=== PATIENT | female | born 1975 | race Two or more races ===

== ENCOUNTER 2024-06-15 09:57 | Outpatient (AMB) | payer BC, SELFPAY ==
[2024-06-15 10:27] VITALS: BP 128/85; PULSE 78; RESP 16; TEMP 36.2; O2SAT 95; BMI 35.6
--- NOTE | 2024-06-15 10:27 | GYNCLNT_ITS ---
Vital Signs 06/15/24 10:27 Height 1.63 m Height Method Stated Weight 94.064 kg Weight Measurement Method Standing Scale BMI 35.6 BP 128/85 H Blood Pressure Source Automatic Cuff Blood Pressure Location Left Upper Arm Position Sitting Respiration 16 Pulse 78 Pulse Source Monitor Temp 97.2 F Temp Source Oral Pulse Oximetry (%) 95 Oxygen Delivery Method Room Air Allergies/Home Meds Allergies & Medications Allergies No Known Allergies Allergy (Verified 06/15/24 10:29) Medication Reconciliation nebivolol 10 mg tablet 10 mg PO QDAY 06/15/24 [History Confirmed 06/15/24] Intake Visit Data Collection New Patient or Established: Established Patient (seen at [facility] within 3 years) Reason for Visit:: HEAVY MENSES Seen by Clinical Staff ONLY (RN/MA): No 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 Required: No Do You Feel Safe at Home: Yes Authorities Contacted: N/A PCP or OBGYN visit in last 3 months: No Hx Now: No Are you currently on any form of Control: Yes Last menstrual period: 05/12/24 Pain Present Currently: No Pain Scale Used: Leonard-Kate/Numerical Pain scale:: 0 Smoking Status Smoking Status: Never smoker 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 1. Little interest or pleasure in doing things: not at all 2. Feeling down, depressed, or hopeless: not at all Total score: 0 PHQ-9 3. Trouble falling or staying asleep, or sleeping too much: Not at all 4. Feeling tired or having little energy: Not at all 5. Poor appetite or overeating: Not at all 6. Feeling bad about yourself - or that you are a failure or have let yourself or your family down: Not at all 7. Trouble concentrating on things, such as reading the newspaper or watching television: Not at all 8. Moving or speaking so slowly that other people could have noticed? - Or the opposite - being so fidgety or restless that you have been moving around a lot more than usual: not at all 9. Thoughts that you would be better off or of hurting yourself in some way: Not at all Total score: 0 Source: Developed by Drs. Ramón Brennan, Ayanna Cesar, Jason Finnegan and colleagues, with an educational landon from [employer]. Depression screen completed yes Social History Living Situation History Marital Status: Lives With: Family Housing: House Tobacco History Smoking Status: Never smoker Second Hand Smoke Exposure: No Alcohol History Alcohol Intake: Current Alcohol Intake Frequency Other:: SOCIALLY Substance Use History Substance Use: NONE Domestic Abuse History Do You Feel Safe at Home: Yes Past Medical History Past Medical History Have you ever been diagnosed with any of the following: Neurological Problems Migraine: No Cardiology Problems Cardiac Arrhythmia: No Heart Murmur: No Hypercholesterolemia: Yes Rheumatic Fever: No Hypertension: Yes (On a beta-brandon) Respiratory Problems Asthma: No Tuberculosis: No Pulmonary Embolism: No Sleep Apnea: No Stomache/Intestinal Problems Celiac Disease: No Gall Bladder Disease: No Irritable Bowel: Yes Gastroesophageal Reflux Disease: No Obesity: No Genital/Urinary Problems Kidney Stones: No Reproductive Problems Breast Cancer: No Endometriosis: No Fibroids: No Genital Herpes: No Gonorrhea: No Pelvic Inflammatory Disease: No Polycystic Ovarian Syndrome: No Previous Pregnancies: Yes ( x 4) Syphilis: No Musculoskeletal Problems Myasthenia Gravis: No Arthritis: Yes Fibromyalgia: No Head,Eye,Nose,Throat Problems Cataracts: No Glaucoma: No Endocrine Problems Diabetes Mellitus Type 2: No Hyperthyroidism: Yes (Possible Regina's) Hypothyroidism: Yes (MORE THAN 8 YEARS AGO) Thyroid Cancer: No Blood Problems Anemia: No Psychologic Problems Depression: Yes Anxiety: Yes Other Problems Hospitalization: Yes (For vaginal delivery x 4) Cosmetic Surgery: No Blood Transfusions: No VRSA: No Surgical History Appendectomy: No Bariatric Surgery: No Breast Surgery: No Additional Surgical History: Endometrial biopsy History of Present Illness HPI Narrative The patient is a very pleasant 48-year-old -1-0-4 past obstetrical history significant for vaginal delivery x 4 her babies were born in 1995, 2000, 2002, and 2007. Her second child was born at 36 weeks. Patient presents to discuss her heavy cycles. She started a workup with Dr. Duffy I do not have any records available. She states about a year ago she had an ultrasound and an endometrial biopsy performed with Dr. Duffy. She states her spouse had a vasectomy. Her cycles used to be 3 days and now they are 7 days with clots. Patient is interested in a NovaSure endometrial ablation. She has heard from some of her friends that had an ablation that they are very happy with their results and she would like to pursue this. She is on blood pressure medication and cannot take control pills. She declines a Mirena IUD for her cycles. She has a history of some type of thyroid imbalance and is unsure whether it is Regina's. She states she has not had her thyroid checked in a while. Besides her heavy cycles she has no gynecological complaints. She states she has had a Pap smear within the last year. Review of Systems Constitutional Constitutional: Reports system reviewed and no additional complaints, except as documented Comments: Patient reports heavy cycles and cramps with her heavy cycles no fevers chills abnormal discharge. No new partners. No pelvic organ prolapse. No urinary complaints. No severe pelvic pain. Exam Narrative Physical exam: Pelvic and cervical exam deferred General General Appearance: alert, in no apparent distress, comfortable, cooperative, healthy appearing and well groomed ENT ENT exam: Present normal exam, normal oropharynx and mucous membranes moist Neck Neck exam: Present normal inspection, full ROM and trachea midline Chest Chest inspection: Present normal inspection and symmetric chest wall rise Resp Respiratory exam: Present normal lung sounds bilaterally Card Cardiovascular exam: Present regular rate, normal rhythm and normal heart sounds Abdominal Abdominal exam: Present soft and normal bowel sounds Psych Psychiatric exam: Present normal affect and normal mood Skin Skin exam: Present warm, dry, intact and normal color Assessment & Plan Diagnosis / Problem List (1) Menorrhagia, premenopausal: Status: Acute Assessment and Plan: Different options were discussed including watchful waiting Mirena IUD or surgical management in the form of a NovaSure endometrial ablation. Patient's s pouse has had a vasectomy for contraception. Patient opts for NovaSure endometrial ablation. This point we will check a thyroid and ultrasound and a CBC. Will authorize her insurance for NovaSure endometrial ablation she will come in for a preop visit once this is authorized. Additional Plan Follow Up: 4 Weeks Office Procedures OB Clinic LOC & Office Proc's Nursing/Assessment Patient Status: Established Patient OB Clinic Nursing Assessment: Medication Reconciliation, Update PMH in EMR and Vital Signs OB Clinic Coordination of Care: Complex Care and Chronic Disease 1-5, Consent, records obtained, informed consent, Education Simp Pt/Fam, Lab and Imaging orders and Staff clarify orders Established Patient Charge Established Patient Point Assignment: 100 Established Patient Point Charge: EP Level 3 (80-115)
== END 2024-06-15 11:16 | disposition home or self-care (01) ==
LOC: HODSOBC 09:57
PROVIDERS: PCP Obstetrics & Gynecology; Referring Provider Obstetrics & Gynecology; Supervising Provider Obstetrics & Gynecology; Visit Provider Obstetrics & Gynecology
DX: N92.4 Excessive bleeding in the premenopausal period (principal)
CPT/HCPCS: 99213; G0463

== ENCOUNTER → 2024-06-15 | Outpatient (CLI) | payer BC, SELFPAY ==
[2024-06-15 12:16] LABS: Basophils # (Auto) 0.1 Thou/mm3 (0.0-0.2); Basophils % (Auto) 1 % (0-2.5); Eosinophils # (Auto) 0.3 Thou/mm3 (0.0-0.5); Eosinophils % (Auto) 3 % (0-10); Hematocrit 41.2 % (36.0-46.0); Hemoglobin 13.5 g/dL (12.0-16.0); Immature Granulocytes % (Auto) 0 % (0-0); Immature Granulocytes Auto 0.03 Thou/mm3 (0.00-0.00); Lymphocytes # (Auto) 2.6 Thou/mm3 (1.0-4.8); Lymphocytes % (Auto) 29 % (10-50); Mean Corpuscular HGB Conc 32.8 g/dl (31.0-37.0); Mean Corpuscular Hemoglobin 26.9 pg (25.0-35.0); Mean Corpuscular Volume 82 fL (80-100); Monocytes # (Auto) 0.7 Thou/mm3 (0.0-0.8); Monocytes % (Auto) 7 % (0-12); Neutrophils # (Auto) 5.4 Thou/mm3 (1.8-7.7); Neutrophils % (Auto) 60 % (37-80); Nucleated Red Blood Cell % 0 /100 WBC (0); Platelet Count 378 Thou/mm3 (140-440); RDW Standard Deviation 44.3 fL (36.4-46.3); Red Blood Count 5.01 Miln/mm3 (4.00-5.20)
[2024-06-15 12:27] LABS: Alanine Aminotransferase 17 U/L (10-49); Albumin, Serum 4.5 gm/dL (3.5-5.0); Albumin/Globulin Ratio 1.7 (1.2-2.2); Alkaline Phosphatase 77 U/L (46-116); Anion Gap 8 (7-16); Aspartate Amino Transferase 15 U/L (0-34); BUN/Creatinine Ratio 15 Ratio (12-20); Bilirubin,Total 0.4 mg/dL (0.3-1.2); Blood Urea Nitrogen 12 mg/dL (9-23); Calcium 9.7 mg/dL (8.3-10.6); Calcium (Corrected) 9.7 mg/dL (8.5-10.1); Carbon Dioxide 23.7 mMol/L (20.0-31.0); Chloride 108 mMol/L (98-107); Creatinine (Component) 0.8 mg/dL (0.6-1.3); Free T4 (Free Thyroxine) 1.12 ng/dL (0.89-1.76); Globulin 2.6 gm/dL (2.3-3.5); Glucose 101 mg/dL (74-106); Osmolality,Calculated 279 (275-295); Potassium 4.7 mMol/L (3.4-5.1); Sodium 140 mMol/L (136-145); Thyroid Stimulating Hormone 2.74 uIU/mL (0.55-4.78); Total Protein 7.1 gm/dL (5.7-8.2); eGFR > 60 See Note
[2024-06-18 07:19] LABS: Thyroid Peroxidase Antibodies* >900 IU/mL (<9)
== END | disposition home or self-care (01) ==
PROVIDERS: PCP Nurse Practitioner Family; Referring Provider Obstetrics & Gynecology; Visit Provider Obstetrics & Gynecology
DX: N92.0 Excessive and frequent menstruation with regular cycle (principal)
CPT/HCPCS: 36415; 80053; 84439; 84443; 85025; 86376

== ENCOUNTER → 2024-08-21 | Outpatient (CLI) | payer BC, SELFPAY ==
--- NOTE | 2024-08-21 08:30 | XR_ITS ---
Examination: Thyroid sonography complete TECHNIQUE: Grayscale sonographic images thyroid lobes Date and time: August 21, 2024 0833 hours Comparison June 01, 2022 INDICATIONS: Lower pole vascular right thyroid nodule 2.4 x 1.8 cm, 10 mm lower pole left thyroid nodule on thyroid sonogram June 01, 2022 FINDINGS: Right thyroid 6.1 cm Lower pole nodule 14 x 12 mm, 17 x 20 mm Isthmus small cyst Left thyroid 4.1 cm Midpole nodule 8 x 3 x 7 mm IMPRESSION: Thyroid nodules as above
== END | disposition home or self-care (01) ==
PROVIDERS: Referring Provider Nurse Practitioner Family; Visit Provider Nurse Practitioner Family
DX: E04.2 Nontoxic multinodular goiter (principal)
CPT/HCPCS: 76536

== ENCOUNTER → 2024-10-20 | Outpatient (CLI) | payer BC, SELFPAY ==
[2024-10-20 09:24] LABS: Misc Send Out* See Sep Rpt
[2024-10-20 10:09] LABS: Glucose Estimated Average 126 mg/dL (80-131); Hemoglobin A1C 6.0 % Hgb (4.8-6.0)
[2024-10-20 10:12] LABS: C-Reactive Protein 0.8 mg/dL (0.0-0.9); Cardiac Risk Estimate 4.1 RATIO (3.7-5.6); Cholesterol 204 mg/dL (132-200); HDL Cholesterol 50 mg/dL (40-60); LDL Cholesterol,Calculated 119 mg/dL (0-130); Magnesium 1.5 mg/dL (1.6-2.6); Triglycerides 175 mg/dL (30-150)
[2024-10-20 10:13] LABS: Ferritin 22 ng/mL (7.3-270.7); Iron 45 mcg/dL (50-170); Total Iron Binding Capacity 363 mcg/dL (250-425)
[2024-10-20 10:15] LABS: Folate 13.97 ng/mL (>5.38); Vitamin B12 419 pg/mL (211-911); Vitamin D 25 Hydroxy Total 9.2 ng/mL (7.3-40.2)
[2024-10-20 10:49] LABS: Syphilis Nonreactive (Nonreactive)
[2024-10-20 11:57] LABS: Cocci Serology, IgM Negative (Negative)
[2024-10-21 11:23] LABS: Cocci Serology, IgG Negative (Negative)
[2024-10-26 14:40] LABS: ANA Screen, IFA NEGATIVE (NEGATIVE); Lyme Antibody Screen <0.90 INDEX
== END | disposition home or self-care (01) ==
LOC: COPL 08:45
PROVIDERS: PCP Nurse Practitioner Family; Referring Provider Nurse Practitioner Family; Visit Provider Nurse Practitioner Family
DX: R76.8 Other specified abnormal immunological findings in serum (principal); L65.9 Nonscarring hair loss, unspecified; R53.82 Chronic fatigue, unspecified; I10 Essential (primary) hypertension; E78.5 Hyperlipidemia, unspecified; E55.9 Vitamin D deficiency, unspecified; M25.50 Pain in unspecified joint; M79.10 Myalgia, unspecified site
CPT/HCPCS: 36415; 80061; 82306; 82607; 82728; 82746; 83036; 83540; 83550; 83735; 84255; 84630; 86038; 86140; 86331; 86618; 86635; 86780

== ENCOUNTER → 2024-11-04 | Outpatient (CLI) | payer BC, SELFPAY ==
--- NOTE | 2024-11-04 | XR_ITS ---
Examination: Abdomen sonogram, complete Date and time of exam: November 04, 2024 0755 hours INDICATIONS: Left flank pain beginning one week ago.. Technique: Multiple real-time grayscale transabdominal sonographic images of the abdomen have been obtained. Findings: Normal gallbladder. Normal common bile duct 0.4 cm Pancreatic head 2.2 cm Aorta not enlarged. Liver 17.2 cm fatty infiltration Normal hepatopedal portal venous flow Patent IVC Right kidney 10.8 cm cortex 1.5 cm Left kidney 12.2 cm cortex 2.0 cm Mild renal scar formation Spleen 11.0 cm IMPRESSION: Normal gallbladder Mild to moderate hepatomegaly with fatty infiltration
[2024-11-04 08:35] LABS: Amylase 68 U/L (30-118); Lipase 33 U/L (12-53); Magnesium 1.8 mg/dL (1.6-2.6)
== END | disposition home or self-care (01) ==
LOC: CDIM 06:45
PROVIDERS: PCP Family Medicine
DX: K76.0 Fatty (change of) liver, not elsewhere classified (principal); R10.84 Generalized abdominal pain
CPT/HCPCS: 36415; 76700; 82150; 83690; 83735

== ENCOUNTER → 2024-11-25 | Outpatient (CLI) | payer BC, SELFPAY ==
[2024-11-25 08:00] LABS: Collection Type, Urine Clean Catch
[2024-11-25 08:29] LABS: Bilirubin,Urine Negative (Negative); Blood,Urine Trace (Negative); Clarity,Urine Clear (Clear/Hazy); Color,Urine Lt-Yellow (Lt Yel-Yel); Culture Indicated,Urine Not Indicated; Glucose, Urine Negative (Negative); Ketones,Urine Negative (Negative); Leukocyte Esterase,Urine Negative (Negative); Nitrite,Urine Negative (Negative); PH,Urine 6.0 (5.0-7.0); Protein,Urine Negative (Neg - Trace); RBC,Urine 3 /hpf (0-3); Specific Gravity,Urine 1.021 (1.001-1.035); Squamous Epithelial Cell,Urine 3 /hpf (0-5); Urobilinogen,Urine Negative mg/dL (0.0-1.0); WBC,Urine 1 /hpf (0-5)
[2024-11-25 08:44] LABS: Magnesium 2.0 mg/dL (1.6-2.6)
[2024-12-16 07:08] LABS: Estradiol, Ultrasensitive* 85 pg/mL; Progesterone,LC/MS* <0.1 ng/mL
== END | disposition home or self-care (01) ==
LOC: COPL 07:12
PROVIDERS: PCP Nurse Practitioner Family; Referring Provider Nurse Practitioner Family; Visit Provider Nurse Practitioner Family
DX: E83.42 Hypomagnesemia (principal); R10.84 Generalized abdominal pain; R53.82 Chronic fatigue, unspecified
CPT/HCPCS: 36415; 81001; 82670; 83735; 84144

== ENCOUNTER → 2024-12-28 | Outpatient (CLI) | payer BC, SELFPAY ==
--- NOTE | 2024-12-28 14:30 | XR_ITS ---
Examination: Pelvic ultrasound, transabdominal, complete Technique: Transabdominal ultrasound of the pelvis performed using grayscale imaging Date and time of exam: December 28, 2024, 1442 hours INDICATION: Heavy vaginal bleeding and pelvic cramps years FINDINGS: Uterus 8.7 cm endometrial stripe 0.6 cm No uterine mass or intrauterine gestation Ovaries obscured by bowel gas IMPRESSION: Limited study No uterine mass or intrauterine gestation
--- NOTE | 2024-12-28 14:30 | XR_ITS ---
Examination: Transvaginal ultrasound of the pelvis, complete Technique: Transvaginal sonographic images pelvis performed using velasco scale imaging Exam date and time: December 28, 2024, 1447 hours INDICATIONS: Heavy vaginal bleeding and cramping beginning several years ago FINDINGS: Uterus 7.1 cm endometrial stripe 0.4 cm No uterine mass or intrauterine gestation Right ovary 3.2 cm arterial flow 12 mm cyst Left ovary 3.6 cm arterial flow 6 mm follicular cyst Mild fluid in the cul-de-sac IMPRESSION: No uterine mass or intrauterine gestation.
== END | disposition home or self-care (01) ==
LOC: CDIM 14:20
PROVIDERS: PCP Family Medicine; Referring Provider Nurse Practitioner Family; Visit Provider Nurse Practitioner Family
DX: N93.9 Abnormal uterine and vaginal bleeding, unspecified (principal)
CPT/HCPCS: 76830; 76856

== ENCOUNTER 2025-01-07 08:50 | Outpatient (AMB) | payer BC, SELFPAY ==
[2025-01-07 09:07] VITALS: BP 123/73; PULSE 96; RESP 18; TEMP 36.2; O2SAT 96; BMI 34.9
--- NOTE | 2025-01-07 09:07 | GSCOFFNT_ITS ---
Vital Signs - [facility] 01/07/25 09:07 Height 1.63 m Height Method Stated Weight 92.986 kg Weight Measurement Method Standing Scale BMI 34.9 BP 123/73 Blood Pressure Source Automatic Cuff Blood Pressure Location Right Upper Arm Position Sitting Respiration 18 Pulse 96 Pulse Source Monitor Temp 97.1 F Temp Source Temporal Artery Scan Pulse Oximetry (%) 96 Oxygen Delivery Method Room Air Med/Allergies Allergies & Medications Allergies No Known Allergies Allergy (Verified 01/07/25 09:08) Medication Reconciliation losartan 25 mg tablet 25 mg PO QDAY 01/07/25 [History Confirmed 01/07/25] MA Intake Visit Data Collection New Patient or Established: Established Patient (seen at [facility] within 3 years) Seen by Clinical Staff ONLY (RN/MA): No Reason for Visit:: COLONOSCOPY REFERRAL Pain Present Currently: No Pain Location: Abdomen Pain scale:: 0 Pain Scale Used: Leonard-Kate/Numerical Assembler Motor Vehicle Required: No PCP or OBGYN visit in last 3 months: Yes Hx Now: No Do You Feel Safe at Home: Yes Authorities Contacted: N/A Smoking Status Smoking Status: Never smoker Immunization / Flu Flu Vaccine in the Last 12 Months: No Flu Vaccine Exclusion Criteria: No Exclusion Criteria Past Medical History Past Medical History NEUROLOGIC: Negative Neurological Disorders, Cerebrovascular Accident, Transient Ischemic Attacks (TIA), Dementia, Alzheimer's Disease, Parkinson's Disease, Brain Tumor, Meningitis, Seizures, Epilepsy, Multiple Sclerosis, Cerebral Palsy, Amyotrophic Lateral Sclerosis (ALS/Cheri Gehrig's), Guillain-Paterson Syndrome, Spina Bifida, Paralysis, Peripheral Neuropathy, Loya's Palsy, Subdural Hematoma, Migraine, Head Trauma, Spinal Cord Injury or Traumatic Brain Injury CARDIAC: Positive Cardiac Disorders (HEART PALPATATIONS), Hypercholesterolemia and Hypertension (On a beta-brandon); Negative Myocardial Infarction, Cardiac Arrhythmia, Atrial Fibrillation, Angina, Heart Murmur, Coronary Artery Disease, Atherosclerotic Heart Disease, Peripheral Vascular Disease, Aneurysm, Congestive Heart Failure, Congenital Heart Disease, Valvular Heart Disease, Rheumatic Fever, Cardiomyopathy or Edema RESPIRATORY: Negative Chronic Obstructive Pulmonary Disease (COPD), Asthma, Bronchitis, Emphysema, Pneumonia, Pulmonary Fibrosis, Tuberculosis, Pulmonary Embolism, Pulmonary Edema, Sleep Apnea, CPAP Dependent, Respiratory Aspiration, Dyspnea, Orthopnea, Cough, Sputum Production, Wheezing, Chest Deformities, Smoking, Smoking Cessation Counseling, Smoking Exposure, Tobacco Use, Clubbing, Exposure to Respiratory Irritants or Intubation GASTROINTESTINAL: Positive Irritable Bowel; Negative Gastrointestinal Disorders, Liver Cancer, Hepatitis, Cirrhosis, Pancreatic Cancer, Pancreatitis, Celiac Disease, Gall Bladder Disease, Gastrointestinal Bleed, Esophageal Varices, Purvis's Esophagus, Colitis, Ulcerative Colitis, Diverticulitis, Diverticulosis, Ulcer, Colorectal Cancer, Crohn's Disease, Obstructive Bowel, Hiatal Hernia, Hemorrhoids, Gastroesophageal Reflux Disease or Obesity GENITOURINARY: Negative Genitourinary Disorders, Renal Disease, Kidney Stones, Polycystic Kidney Disease, Neurogenic Bladder or Inguinal Hernia REPRODUCTIVE: Positive Previous Pregnancies ( x 4); Negative Breast Cancer, Endometriosis, Fibroids, Genital Herpes, Gonorrhea, Pelvic Inflammatory Disease, Hx Polycystic Ovarian Syndrome or Syphilis MUSCULOSKELETAL: Positive Arthritis; Negative Muscular Dystrophy, Myasthenia Gravis, Marfan's Syndrome, Bone Cancer, Gout, Scoliosis, Carpal Tunnel Syndrome, Fibromyalgia, Fractures or Osteomyelitis ENT: Negative Cataracts, Glaucoma, Blind, Retinal Detachment, Macular Degeneration, Ear Infection, Deafness, Head Trauma or Eye Prosthesis ENDOCRINE: Positive Hyperthyroidism (Possible Regina's) and Hypothyroidism (MORE THAN 8 YEARS AGO); Negative Diabetes Mellitus Type 1, Diabetes Mellitus Type 2, Emily's Syndrome, Steele's Disease, Thyroid Cancer, Parathyroid Disease, Pituitary Disease or Graves' Disease HEMATOLOGIC: Negative Blood Disorders, Anemia, Leukemia, Hemophilia, Thalassemia, Sickle Cell Disease or Clotting Problems PSYCHO/SOCIAL: Positive Depression and Anxiety; Negative Schizophrenia, Recreational Drug Use or Bipolar Disorder OTHER HISTORY: Positive Hospitalization (For vaginal delivery x 4), Measles and Mumps; Negative Down Syndrome, Developmental Delay, Cosmetic Surgery, Shingles, Falls, Blood Transfusions, Anesthesia Reactions, Organ Transplant, Chemotherapy, R adiation Therapy, Hyperbaric Therapy, MRSA, VRSA, Vancomycin-Resistant Enterococci, Chicken Pox, Cancer, Breast Cancer or Colorectal Cancer Surgical History SURGICAL: Negative Organ Transplant Social History SMOKING STATUS: Smoking status: Never smoker SECOND HAND EXPOSURE: second hand exposure: No ALCOHOL: Alcohol Intake: Current HOUSING: Housing: House Travel Risk Travel Hx Recent Travel: No HPI HPI Narrative HISTORY OF PRESENT ILLNESS I, Eladia Whaley, have obtained verbal consent from the patient, to be recorded during this encounter which may include, but not limited to, medical history, examination, treatment plans, and relevant health information.? Patient was informed that recording will be read and reviewed by myself before inclusion in the medical chart. The patient is a 49-year-old female who presents for a colonoscopy. She has been experiencing intermittent left upper abdominal pain, described as being under her rib, for over a year. The pain, which she rates as 6 to 7 out of 10, was initially constant but has since become sporadic. She reports no current pain but recalls a particularly severe episode that led her to consider seeking medical attention. The pain is not associated with any specific triggers and can occur at any time of day. It resolves spontaneously without the need for medication. She has also been dealing with constipation since the of her first child nearly 30 years ago. Despite attempts to manage her symptoms with increased water and fiber intake, she has found no relief. Her bowel movements are irregular, with periods of up to 7 days without a bowel movement. Over the past month, she has noticed a change in her stool consistency, which has become thinner, slightly larger than a pencil. She reports no presence of blood in her stool or pain during bowel movements. Her past medical history includes hypertension and prediabetes, both of which are well-managed. She is on losartan for hypertension. She was recently diagnosed with Regina's thyroiditis in 09/2024. She has been watching her diet and lost a couple of pounds. She tries to walk a mile 4 days out of the week after meals. 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 [employer], walks regularly, no EtOH or tobacco use Family hx: No known CRC ROS Review of Systems Systems Reviewed: All systems reviewed, normal except as documented Objective/Exam General General Appearance: alert, cooperative and well groomed Resp Respiratory exam: Absent respiratory distress Abdominal Abdominal exam: Present soft and tenderness (mild tenderness diffusely, more pronounced in LLQ); Absent distention Assessment & Plan Diagnosis / Problem List (1) Encounter for diagnostic colonoscopy due to change in bowel habits: Status: Acute Assessment & Plan: Reports left-sided abdominal pain for just over a year, rated 6 or 7 out of 10 on the pain scale. The pain was consistent initially but has become intermittent over the last few months, with no clear exacerbating factors. A colonoscopy will be scheduled as soon as possible, likely in January 2025. The procedure will be performed under conscious sedation. The risks, benefits, and alternatives of the procedure were discussed in detail. She was advised to avoid solid food the day before the procedure and to consume only clear liquids until midnight. Potential risks of the procedure, including bleeding and perforation, were explained. If polyps are found, they will be removed during the procedure, which may result in some bleeding that typically resolves on its own. In rare cases, a perforation of the colon may occur, necessitating emergency surgery. If the colon has sharp angles that prevent safe completion of the procedure, a referral to a GI specialist will be made. All questions were answered and pt is agreeable to proceeding Office Procedures GNS Level of Care Nursing/Assessment Patient Status: Established Patient Nursing Assessment/Reassesment: Medication Reconciliation, Update PMH in EMR and Vital Signs Coordination of Care: Complex Care and Chronic Disease 1-5, Education Complex Pt/Fam, Consent,records obtained, informed consent, Results/Orders obtained and Staff clarify orders Established Patient Charge Established Patient Point Assignment: 95 Established Patient Point Charge: EP Level 3 (80-115) Patient Portal Questionaires Social History Living Situation History Lives With: Family Housing: House Tobacco History Smoking Status: Never smoker Second Hand Smoke Exposure: No Alcohol History Alcohol Intake: Current Alcohol Intake Frequency Other:: SOCIALLY Substance Use History Substance Use: NONE Domestic Abuse History Do You Feel Safe at Home: Yes Review of Systems Report any current symptoms Only answer those that you have currently: Past Medical History Past Medical History Have you ever been diagnosed with any of the following: Neurological Problems Cerebrovascular Accident (CVA): No Transient Ischemic Attacks (TIA): No Dementia: No Alzheimer's Disease: No Parkinson's Disease: No Brain Tumor: No Meningitis: No Seizures: No Epilepsy: No Multiple Sclerosis: No Cerebral Palsy: No Amyotrophic Lateral Sclerosis (ALS/Cheri Gehrig's): No Guillain-Paterson Syndrome: No Spina Bifida: No Paralysis: No Peripheral Neuropathy: No Loya's Palsy: No Subdural Hematoma: No Migraine: No Head Trauma: No Spinal Cord Injury: No Traumatic Brain Injury: No Cardiology Problems Myocardial Infarction: No Cardiac Arrhythmia: No Atrial Fibrillation: No Angina: No Heart Murmur: No Coronary Artery Disease: No Atherosclerotic Heart Disease: No Peripheral Vascular Disease: No Hypercholesterolemia: Yes Aneurysm: No Congestive Heart Failure: No Congenital Heart Disease: No Valvular Heart Disease: No Rheumatic Fever: No Cardiomyopathy: No Edema: No Hypertension: Yes (On a beta-brandon) Respiratory Problems Chronic Obstructive Pulmonary Disease (COPD): No Asthma: No Bronchitis: No Emphysema: No Pneumonia: No Pulmonary Fibrosis: No Tuberculosis: No Pulmonary Embolism: No Pulmonary Edema: No Sleep Apnea: No CPAP Dependent: No Respiratory Aspiration: No Dyspnea: No Orthopnea: No Hx Cough: No Cough: No Wheezing: No Chest Deformities: No Smoking: No Smoking Cessation Counseling: No Smoking Exposure: No Tobacco Use: No Clubbing: No Exposure to Respiratory Irritants: No Intubation: No Stomache/Intestinal Problems Liver Cancer: No Hepatitis: No Cirrhosis: No Pancreatic Cancer: No Pancreatitis: No Celiac Disease: No Gall Bladder Disease: No Gastrointestinal Bleed: No Esophageal Varices: No Purvis's Esophagus: No Colitis: No Ulcerative Colitis: No Diverticulitis: No Diverticulosis: No Ulcer: No Colorectal Cancer: No Irritable Bowel: Yes Crohn's Disease: No Obstructive Bowel: No Hiatal Hernia: No Hemorrhoids: No Gastroesophageal Reflux Disease: No Obesity: No Genital/Urinary Problems Renal Disease: No Kidney Stones: No Polycystic Kidney Disease: No Neurogenic Bladder: No Inguinal Hernia: No Reproductive Problems Breast Cancer: No Endometriosis: No Fibroids: No Genital Herpes: No Gonorrhea: No Pelvic Inflammatory Disease: No Polycystic Ovarian Syndrome: No Previous Pregnancies: Yes ( x 4) Syphilis: No Musculoskeletal Problems Muscular Dystrophy: No Myasthenia Gravis: No Marfan's Syndrome: No Bone Cancer: No Arthritis: Yes Gout: No Scoliosis: No Carpal Tunnel Syndrome: No Fibromyalgia: No Fractures: No Osteomyelitis: No Head,Eye,Nose,Throat Problems Cataracts: No Glaucoma: No Blind: No Retinal Detachment: No Macular Degeneration: No Chronic Ear Infections: No Deafness: No Eye Prosthesis: No Endocrine Problems Diabetes Mellitus Type 1: No Diabetes Mellitus Type 2: No Waterbury's Syndrome: No Steele's Disease: No Hyperthyroidism: Yes (Possible Regina's) Hypothyroidism: Yes (MORE THAN 8 YEARS AGO) Thyroid Cancer: No Parathyroid Disease: No Pituitary Disease: No Graves' Disease: No Blood Problems Anemia: No Leukemia: No Hemophilia: No Thalassemia: No Sickle Cell Disease: No Clotting Problems: No Psychologic Problems Schizophrenia: No Recreational Drug Use: No Bipolar Disorder: No Depression: Yes Anxiety: Yes Other Problems Hospitalization: Yes (For vaginal delivery x 4) Down Syndrome: No Developmental Delay: No Cosmetic Surgery: No Shingles: No Falls: No Blood Transfusions: No Anesthesia Reactions: No Organ Transplant: No Chemotherapy: No Radiation Therapy: No Hyperbaric Therapy: No MRSA: No VRSA: No Vancomycin-Resistant Enterococci: No Chicken Pox: No Measles: Yes Mumps: Yes Cancer: No Surgical History Appendectomy: No Bariatric Surgery: No Breast Surgery: No
== END 2025-01-07 09:47 | disposition home or self-care (01) ==
LOC: HODSRG 08:50
PROVIDERS: PCP Nurse Practitioner Family; Referring Provider Nurse Practitioner Family; Supervising Provider Surgery; Visit Provider Surgery
DX: R19.4 Change in bowel habit (principal); I10 Essential (primary) hypertension
CPT/HCPCS: 99213; G0463

== ENCOUNTER → 2025-02-01 | Outpatient (CLI) | payer BC, SELFPAY ==
--- NOTE | 2025-02-01 11:30 | XR_ITS ---
Examination: CT abdomen and pelvis without contrast. Coronal 3-D reconstructions. Sagittal 2-D reconstructions. Date and time of exam: February 01, 2025, 1438 hours, comparison August 09, 2024 INDICATIONS: Onset left lower abdominal pain beginning 1 year ago CTDI: vol (mGy): 11.8 DLP: (mGycm): 651 Technique: Axial images of the abdomen have been obtained, 3 mm slice thickness Intravenous contrast material has not been administered. Low dose protocols were performed. One or more of the following dose reduction techniques were used; automated exposure control, adjustment of the mA and/or KV according to patient size, use of iterative reconstruction technique. Findings: No focal liver or splenic lesion No gallstones 18 mm fat-containing adrenal adenoma, right No pancreatic or adrenal mass No renal or ureteral calculi, no hydronephrosis Aorta normal size Small fat-containing umbilical hernia No pericecal inflammatory change No obstruction or diverticulitis Mild to moderate free fluid in the pelvis Urinary bladder intact Moderate osteopenia IMPRESSION: 18 mm fat-containing right adrenal adenoma No ureteral calculi, no hydronephrosis CT findings of appendicitis bowel obstruction or diverticulitis Normal appendix
[2025-02-01 12:27] LABS: Basophils # (Auto) 0.1 Thou/mm3 (0.0-0.2); Basophils % (Auto) 1 % (0-2.5); Eosinophils # (Auto) 0.2 Thou/mm3 (0.0-0.5); Eosinophils % (Auto) 2 % (0-10); Hematocrit 40.2 % (36.0-46.0); Hemoglobin 13.1 g/dL (12.0-16.0); Immature Granulocytes Auto 0.04 Thou/mm3 (0.00-0.00); Lymphocytes # (Auto) 2.8 Thou/mm3 (1.0-4.8); Lymphocytes % (Auto) 29 % (10-50); Mean Corpuscular HGB Conc 32.6 g/dl (31.0-37.0); Mean Corpuscular Hemoglobin 27.1 pg (25.0-35.0); Mean Corpuscular Volume 83 fL (80-100); Monocytes # (Auto) 0.6 Thou/mm3 (0.0-0.8); Monocytes % (Auto) 7 % (0-12); Neutrophils # (Auto) 6.0 Thou/mm3 (1.8-7.7); Neutrophils % (Auto) 61 % (37-80); Nucleated Red Blood Cell # 0.00 Thou/mm3 (0.00-0.00); Nucleated Red Blood Cell % 0 /100 WBC (0); Platelet Count 349 Thou/mm3 (140-440); RDW Standard Deviation 44.6 fL (36.4-46.3); Red Blood Count 4.83 Miln/mm3 (4.00-5.20); White Blood Count 9.7 Thou/mm3 (3.6-11.0)
[2025-02-01 12:36] LABS: Alanine Aminotransferase 18 U/L (10-49); Albumin, Serum 4.9 gm/dL (3.5-5.0); Albumin/Globulin Ratio 2.0 (1.2-2.2); Alkaline Phosphatase 86 U/L (46-116); Anion Gap 12 (7-16); Aspartate Amino Transferase 17 U/L (0-34); BUN/Creatinine Ratio 11 Ratio (12-20); Bilirubin,Total 0.4 mg/dL (0.3-1.2); Blood Urea Nitrogen 9 mg/dL (9-23); Calcium 10.2 mg/dL (8.3-10.6); Calcium (Corrected) 10.2 mg/dL (8.5-10.1); Carbon Dioxide 24.2 mMol/L (20.0-31.0); Cardiac Risk Estimate 3.9 RATIO (3.7-5.6); Chloride 108 mMol/L (98-107); Cholesterol 211 mg/dL (132-200); Creatinine (Component) 0.8 mg/dL (0.6-1.3); Globulin 2.4 gm/dL (2.3-3.5); Glucose 96 mg/dL (74-106); HDL Cholesterol 54 mg/dL (40-60); LDL Cholesterol,Calculated 108 mg/dL (0-130); Osmolality,Calculated 285 (275-295); Potassium 3.9 mMol/L (3.4-5.1); Sodium 144 mMol/L (136-145); Total Protein 7.3 gm/dL (5.7-8.2); Triglycerides 245 mg/dL (30-150); eGFR > 60 See Note
[2025-02-01 12:39] LABS: Vitamin D 25 Hydroxy Total 46.5 ng/mL (7.3-40.2)
[2025-02-01 12:50] LABS: Glucose Estimated Average 117 mg/dL (80-131); Hemoglobin A1C 5.7 % Hgb (4.8-6.0)
[2025-02-01 13:24] LABS: HCG,Qualitative Serum Negative
[2025-02-05 06:45] LABS: Thyroid Peroxidase Antibodies* >900 IU/mL (<9)
== END | disposition home or self-care (01) ==
PROVIDERS: PCP Nurse Practitioner Family; Referring Provider Nurse Practitioner Family; Visit Provider Nurse Practitioner Family
DX: D35.01 Benign neoplasm of right adrenal gland (principal); Z32.00 Encounter for pregnancy test, result unknown
CPT/HCPCS: 36415; 74176; 80053; 80061; 82306; 83036; 84703; 85025; 86376

== ENCOUNTER 2025-02-02 07:55 | Day surgery (SDC) | payer BC, SELFPAY ==
[2025-02-01 12:36] LABS: HCG Qualitative,Urine Negative
[2025-02-01 14:01] VITALS: BMI 33.1
[2025-02-02] VITALS (9 sets, daily range): BP systolic 114–154; BP diastolic 62–101; PULSE 65–95; RESP 16–18; TEMP 36.6–36.7; O2SAT 95–99; BMI 33.1
[2025-02-02] MEDS: RINGERS LACTATED 500 ML 500 ML 20 ML IV (09:36)
[2025-02-02] MEDS: fentaNYL CIT INJ 50 mCg/ML AMP 2ML (ASD USE ONLY) IVP (09:37)
[2025-02-02] MEDS: MIDAZOLAM INJ 1 MG/ML VIAL 2 ML (ASD USE ONLY) 2 MG IVP (09:37)
== END 2025-02-02 10:24 | disposition home or self-care (01) ==
PROVIDERS: PCP Nurse Practitioner Family; Referring Provider Surgery; Visit Provider Surgery
PROC: 0DBE8ZX Excision of Large Intestine, Via Natural or Artificial Opening Endoscopic, Diagnostic (ICD-10-PCS; CPT 45380; principal; 2025-02-02 12:15)
DX: R10.12 Left upper quadrant pain (principal); I10 Essential (primary) hypertension; R73.03 Prediabetes; E06.3 Autoimmune thyroiditis; Z79.899 Other long term (current) drug therapy
CPT/HCPCS: 45378; 81025; A4649; J1200; J2250; J3010; J7120